=== PATIENT | male | born 1980 | race Two or more races ===

== ENCOUNTER 2017-04-23 17:29 | Emergency (ER) | payer MEDICAID ==
[~2017-04-23] VITALS: Ht 170.2 cm; Wt 106.6 kg
[~2017-04-23 17:29] MED LIST: ADVIL; GUAI118L94 PO; HYDR-902 PO; IBUP800T25 PO; ONDA4TAB14 PO; SODI44SP11 NASAL
[2017-04-23 17:36] VITALS: Ht 170.2 cm; Wt 106.6 kg
[2017-04-23] MEDS ORDERED: ALBUTEROL 0.083% (NEB) 2.5 MG/3 ML AMP HHN STA (18:28)
--- NOTE | 2017-04-23 18:28 | ERD ---
ER Documentation Chief Complaint Chief Complaint COUGH X 3 WEEKS HPI This 37 yr, male presents to ED for evaluation of cough, SOB, wheezing and tightness, pt reports pain with deep beating right upper chest, cough is all day but worse at night , pt reports jazzy, denies smoking, asthma, works in construction around dust ROS All systems reviewed and are negative except as per history of present illness. Medications Home Meds Active Scripts Ondansetron (Ondansetron Odt) 4 Mg Tab.rapdis, 4 MG PO Q6H Y for NAUSEA AND/OR VOMITING, #10 TAB Prov:Ashley Lucas PA-C 04/20/16 Hydrocodone/Acetaminophen ([place] 10-325 Tablet) 1 Each Tablet, 1 TAB PO Q6H Y for PAIN, #7 TAB Prov:Ashley Lucas PA-C 04/20/16 Sodium Chloride (Saline Nasal Russell) 45 Ml Russell, 2 SPRAYS NASAL Q2H Y for NASAL CONGESTION, #1 BOTTLE Prov:RANDY DAVIDSON. [employer] 07/15/15 Guaifenesin-Codeine Phosphate* (Guaifenesin* with Codeine Liq) 120 Ml Liquid, 5 ML PO Q4H for COUGH, #120 ML Prov:RANDY DAVIDSON. [employer] 07/15/15 Ibuprofen* (Motrin*) 800 Mg Tab, 800 MG PO Q6H Y for PAIN AND OR ELEVATED TEMP, #30 TAB Prov:RANDY DAVIDSON. [employer] 07/15/15 Reported Medications [Advil] No Conflict Check 07/04/12 Allergies Allergies: Coded Allergies: No Known Drug Allergies (Verified Allergy, Unknown, 07/15/15) Uncoded Allergies: NONE (Allergy, Unknown, 07/15/15) PMhx/Soc History of Surgery: Yes (ANKLE SURGERY) Anesthesia Reaction: No Hx Neurological Disorder: No Hx Respiratory Disorders: No Hx Cardiac Disorders: No Hx Miscellaneous Medical Probl: No Hx Alcohol Use: No Hx Substance Use: No Hx Tobacco Use: No Smoking Status: Never smoker Physical Exam Vitals Vital Signs Date Time Temp Pulse Resp B/P Pulse Ox O2 Delivery O2 Flow Rate FiO2 04/23/17 19:13 80 18 96 21 04/23/17 17:36 98.6 76 18 129/77 96 Physical Exam Const: Well-nourished well-appearing well-hydrated 37-year-old male patient no acute distress Head: Eyes: ENT: Tympanic membrane erythematous nonbulging, on right, cerumen impaction on left, nasal mucosa is pale, edematous, no maxillary or frontal sinus tenderness. Pharynx is pink,, erythemic, uvula rises and falls with pronation. Neck: Resp: Respirations even and unlabored, as with forced expiration coughs with deep breathing, Cardio: Abd: Soft, non tender, non distended. Normal bowel sounds Skin: Back: Ext: Neur: Awake and alert Psych: Normal Mood and Affect Results 24 hrs Current Medications Medications (Trade) Dose Ordered Sig/[place] Route PRN Reason Start Time Stop Time Status Last Admin Dose Admin Albuterol (Proventil 0.083% (Neb)) 5 mg ONCE STAT HHN 04/23/17 18:28 04/23/17 18:30 DC 04/23/17 19:12 Procedures/MDM PROCEDURE: XR Chest. CLINICAL INDICATION: Cough x2 weeks. Shortness of breath and chest pain. TECHNIQUE: PA and lateral chest x-ray. COMPARISON: None. FINDINGS: The lungs are clear. No focal opacification is seen. There is no pleural effusion or pneumothorax. The cardiomediastinal silhouette is unremarkable. The osseous structures are unremarkable. IMPRESSION: 1. Unremarkable chest x-ray. .Darnell Gregorio MD, MD Date Time This 37-year-old male patient presents to emergency department for 3 week history of cough, nasal congestion, runny nose, postnasal drip, chest weakness, cough productive for white sputum, with overall symptoms worsening at night. Denies asthma or history of hayfever or headaches, patient denies smoking. 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 Emergency room course includes history and physical exam, chest x-ray obtained with radiology interpretation as unremarkable chest x-ray. Patient receives albuterol hand- held nebulized treatment reports improvement of symptoms after interventions completed. Plan to discharge patient home with albuterol, teaching by pharmacy , Mucinex DM, Flonase nasal spray. Patient instructed to increase fluids, increase rest, follow-up with primary physician for reevaluation of URI, bronchitis. Patient is stable with no new complaints during ER course, clinically there is no current evidence to suggest pneumonia, status asthmaticus , rib fracture, congestive heart failure, pulmonary embolism or any other emergent condition appearing to require further evaluation or hospitalization. I feel the patient is stable for discharge at this time. I have discussed results, examination findings, the treatment plan with the patient and family present prior to discharge. Indications for emergent reevaluation, side effects of medication were also discussed. All questions were answered. Patient verbalizes understanding and agrees with plan of care. Departure Diagnosis: Primary Impression: Bronchitis Additional Impression: URI, acute Condition: Good Patient Instructions: Acute Bronchitis, Uri, Viral, No Abx (Adult) Additional Instructions: Thank you for for coming to [facility] for your care today. Please ask your nurse or provider if you have questions about your care today and do not leave until all your questions have been answered. Please use any medications given as directed and follow-up with your doctor (or the doctor you were referred to) in the next 2-3 days. If you do not have a primary care doctor you may follow up at the [facility] (listed below). You may also use motrin and tylenol as needed for fever and/or pain unless instructed otherwise by your provider or nurse. Indications for more urgent follow-up have been discussed, but you may return to the Emergency Department at ANY time for any worrisome or worsening symptoms. If you have abdominal pain, please know that no test or exam you received is perfect and you should follow up within 8 hours for continued pain. If you had any imaging studies today, such as an X-Ray or CT Scan, these studies will be reviewed later by a radiologist. You will be called if there are important findings that were not identified today, so make sure the contact information you provided at registration is correct. If you received any narcotic pain control medicine today, such as Vicodin, Morphine or Dilaudid, your coordination and judgment may be affected for a number of hours. Please do not drive or operate heavy machinery, and you may want someone to assist you at home. If you were given a prescription for narcotic medication, be aware that it is very addictive- use sparingly and only if necessary. AKILA ULLOA Apr 23, 2017 18:28
--- NOTE | 2017-04-23 19:33 | RADRPT ---
PROCEDURE: XR Chest. CLINICAL INDICATION: Cough x2 weeks. Shortness of breath and chest pain. TECHNIQUE: PA and lateral chest x-ray. COMPARISON: None. FINDINGS: The lungs are clear. No focal opacification is seen. There is no pleural effusion or pneumothorax. The cardiomediastinal silhouette is unremarkable. The osseous structures are unremarkable. IMPRESSION: 1. Unremarkable chest x-ray. RPTAT: HMJB .Darnell Gregorio MD, MD Date Time Electronically viewed and signed by .Darnell Gregorio MD, on 04/23/2017 19:33 .B/
[2017-04-23] MEDS ORDERED: ALBU18HF INHALATION (20:00)
[2017-04-23] MEDS ORDERED: GUAI1TBM PO (20:01)
[2017-04-23] MEDS ORDERED: FLUT9.9S NASAL (20:04)
== END 2017-04-23 20:22 | disposition home or self-care (01) ==
LOC: FTE 17:29
DX: J20.9 Acute bronchitis, unspecified (principal); J06.9 Acute upper respiratory infection, unspecified
CPT/HCPCS: 71020; 94664; Z7502; Z7610

== ENCOUNTER 2017-06-30 17:07 | Emergency (ER) | END 2017-06-30 21:30 | disposition home or self-care (01) ==

== ENCOUNTER 2017-08-01 08:14 | Emergency (ER) | END 2017-08-01 09:29 | disposition home or self-care (01) ==